=== PATIENT | male | born 1985 | race Caucasian/White ===

== ENCOUNTER 2021-01-04 20:09 | Emergency (ER) | payer OTHER ==
[2021-01-04 20:25] VITALS: BP 144/107; RESP 20; TEMP 98.1
[2021-01-04 20:32] VITALS: PULSE 75
[2021-01-04] MEDS ORDERED: AMOXIC-POT CLAV 875-125MG 1 EACH TAB PO STA ×2 (20:57→21:24)
[2021-01-04] MEDS ORDERED: DIPH,PERTUS(ACELL)TETVAC-LF 0.5 ML VIAL IM ONE (20:57)
[2021-01-04] MEDS ORDERED: ACETAMINOPHEN TAB 325 MG TAB PO STA (20:57)
--- NOTE | 2021-01-04 21:09 | ED ---
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 Patient states th at the dog belonged to the customer. He does not know the status of the dog's shots. The police were on the scene. He has a puncture janelle to the front of his leg and two punctures to the back of his calf. He is unsure of his tetanus status. He denies any other medical history. He states he was told he has penicillin ALLERGY as a child but does not know his reaction. Complaint: animal bite -: hour(s) (1) Location: other Left: Leg Animal: dog Description: immunizations unknown Mechanism: bite Severity scale (1-10): 4 Context: unprovoked Associated Symptoms: none - Related Data Patient Tetanus UTD: No Previous Rx's Medication Instructions Recorded Amoxicillin/Potassium Clav 1 tab PO Q12HR #20 tab 01/04/21 [Augmentin 875-125 Tablet] Allergies Allergy/AdvReac Type Severity Reaction Status Date / Time Penicillins Allergy Unknown Verified 01/04/21 21:33 Childhood Review of Systems ROS Statement: Those systems with pertinent positive or pertinent negative responses have been documented in the HPI. ROS Other: All systems not noted in ROS Statement are negative. Past Medical History Past Medical History: No Reported History History of Any Multi-Drug Resistant Organisms: None Reported Past Surgical History: No Surgical Hx Reported Past Psychological History: No Psychological Hx Reported Smoking Status: Current every day smoker Past Alcohol Use History: Occasional Past Drug Use History: Marijuana General Exam Limitations: no limitations General appearance: alert, in no apparent distress Head exam: Present: atraumatic, normocephalic, normal inspection Eye exam: Present: normal appearance, PERRL, EOMI. Absent: scleral icterus, conjunctival injection, periorbital swelling ENT exam: Present: normal exam, mucous membranes moist Neck exam: Present: full ROM Respiratory exam: Present: normal lung sounds bilaterally. Absent: respiratory distress, wheezes, rales, rhonchi, stridor Cardiovascular Exam: Present: regular rate, normal rhythm, normal heart sounds. Absent: systolic murmur, diastolic murmur, rubs, gallop, clicks Extremities exam: Present: full ROM, tenderness, normal capillary refill. Absent: pedal edema, joint swelling Left Hip exam: Present: full ROM. Absent: tenderness Upper Leg exam: Present: full ROM. Absent: tenderness Knee exam: Present: full ROM. Absent: tenderness Lower Leg exam: Present: full ROM, tenderness (2 puncture wounds to the posterior surface of the left calf and one puncture wound to the anterior surface). Absent: swelling Ankle exam: Present: full ROM. Absent: tenderness Neurovascular tendon exam: Present: no vascular compromise. Absent: abnormal cap refill, pallor Back exam: Present: full ROM. Absent: tenderness Neurological exam: Present: alert, oriented X3, CN II-XII intact Psychiatric exam: Present: normal affect, normal mood Skin exam: Present: warm, dry, intact, normal color. Absent: rash Course Vital Signs 01/04/21 20:21 Temperature 98.1 F Pulse Rate 75 Respiratory 20 Rate Blood Pressure 144/107 O2 Sat by Pulse 99 Oximetry Medical Decision Making - Medical Decision Making X-ray shows no acute osseous abnormality or foreign body. Patient's tetanus shot was updated at this visit. Wounds were irrigated with water. Patient was offered rabies vaccine and declined. Patient was also offered Tylenol or Motrin for pain and he declined. Patient was placed on Augmentin, he states that he was told as a child he had penicillin ALLERGY but has never been told what the ALLERGY was. He is willing to try the Augmentin and to return to the emergency room with any complications including difficulty breathing, nausea vomiting. Directed to follow up with his primary care doctor in 1 week. Case discussed with Dr. Cassidy Disposition Clinical Impression: Dog bite Disposition: HOME SELF-CARE Condition: Good Instructions (If sedation given, give patient instructions): Animal Bite (ED) Additional Instructions: Return to the emergency room with any worsening symptoms including pain, fever or drainage from the sites. Take antibiotics as prescribed. Follow-up with the primary care doctor in 1 week Prescriptions: Amoxicillin/Potassium Clav [Augmentin 875-125 Tablet] 1 tab PO Q12HR #20 tab Is patient prescribed a controlled substance at d/c from ED?: No Referrals: None,Stated [Primary Care Provider] - 1-2 days Time of Disposition: 21:26
--- NOTE | 2021-01-04 21:18 | XR ---
RESULT: HISTORY: pain TECHNIQUE: 2 views of the left tibia and fibula were obtained. COMPARISON: None. FINDINGS: There is no acute fracture or dislocation of the tibia or fibula. The visualized joint spaces are pre served. No radiopaque foreign body. IMPRESSION: No acute osseous abnormality or radiopaque foreign body.
[2021-01-04] MEDS ORDERED: BACITRACIN OINT 1 EACH PACKET TOPICAL ONE (21:20)
== END 2021-01-04 22:07 | disposition home or self-care (01) ==
LOC: EC 20:09
DX: S81.852A Open bite, left lower leg, initial encounter (principal); F17.200 Nicotine dependence, unspecified, uncomplicated; Z23 Encounter for immunization; Z88.0 Allergy status to penicillin; W54.0XXA Bitten by dog, initial encounter; Y92.89 Other specified places as the place of occurrence of the external cause; Y99.0 Civilian activity done for income or pay
CPT/HCPCS: 90471; 90715; 99283

== ENCOUNTER → 2021-11-06 | Outpatient (CLI) | payer OTHER ==
--- NOTE | 2021-11-06 09:56 | US ---
EXAMINATION TYPE: US mass soft tissue chest/back DATE OF EXAM: 11/06/2021 COMPARISON: NONE CLINICAL HISTORY: M79.89 SOFT TISSUE MASS. Palpable lump midline, lower spine x 2 years Oval poorly marginated 2.1 x 1.1 x 1.9 cm slightly hyperechoic avascular mass that is wider greater t hall fall with increased through transmission in the subcutaneous tissue just below the dermal layer i s identified at palpable abnormality and images saved. IMPRESSION: As above. Benign subcutaneous lipoma is suspected.
--- NOTE | 2021-11-06 09:57 | US ---
EXAMINATION TYPE: US abdomen limited DATE OF EXAM: 11/06/2021 COMPARISON: NONE CLINICAL HISTORY: K42.9 UMBILICAL HERNIA. Pt states a bulge at umbilicus x 8 months Assess for hernia at location of: Umbilicus Probable hernia in area of umbilicus= 2.1 cm, abdominal wall "break" visualized- no peristalsis vis ualized during valsalva maneuver IMPRESSION: Moderate size umbilical hernia containing fat and tiny mesenteric vessel seen on images obtained. Real-time scanning was performed by the machine packager utilizing Valsalva and additional dynamic maneuve rs to assess for hernia.
== END | disposition home or self-care (01) ==
LOC: RADUSWWP 09:22
PROVIDERS: ATTEND Family Medicine
DX: M79.89 Other specified soft tissue disorders (principal); K42.9 Umbilical hernia without obstruction or gangrene
CPT/HCPCS: 76705

== ENCOUNTER → 2022-03-07 | Outpatient (CLI) | payer OTHER ==
[2022-03-07 18:31] LABS: HCT 50.8 % (39.6-50.0); HGB 16.9 g/dL (13.0-17.0); MCH 30.3 pg (27.0-32.0); MCHC 33.3 g/dL (32.0-37.0); MCV 91.2 fL (80.0-97.0); Mean Platelet Volume 11.3 fL (9.5-12.2); NRBC Per 100 WBC 0 /100 WBCS (0.0-0.0); Platelet Count 265 X 10*3/uL (140-440); RBC 5.57 X 10*6/uL (4.40-5.60); WBC 8.77 X 10*3/uL (4.50-10.00)
== END | disposition home or self-care (01) ==
LOC: LABPAT 11:16
PROVIDERS: ATTEND Surgery Plastic and Reconstructive Surgery
DX: Z01.812 Encounter for preprocedural laboratory examination (principal); K46.9 Unspecified abdominal hernia without obstruction or gangrene
CPT/HCPCS: 85027

== ENCOUNTER 2022-03-10 08:43 | Day surgery (SDC) | payer OTHER ==
[2022-02-07 14:45] VITALS: BMI 28.7
--- NOTE | 2022-03-10 07:54 | P.GSHP ---
History of Present Illness H&P Date: 03/10/22 CHIEF COMPLAINT: Ventral hernia HISTORY OF PRESENT ILLNESS: The patient is a 36-year-old male presents with a history of swelling and pain along the abdomen from a hernia of the abdomen. Symptoms have been present for over 6 months. Now he presents for surgical intervention. PAST MEDICAL HISTORY: Please see list. PAST SURGICAL HISTORY: Please see list. MEDICATIONS: Please see list. ALLERGIES: Please see list. SOCIAL HISTORY: No illicit drug use FAMILY HISTORY: No reports of Crohn disease or ulcerative colitis. REVIEW OF ORGAN SYSTEMS: CONSTITUTIONAL: No reports of fevers or chills. No reports of weight loss despite prior attempts. GI: Denies any blood in stools or constipation. PHYSICAL EXAM: VITAL SIGNS: Stable GENERAL: Well-developed pleasant male in no acute distress. HEENT: No scleral icterus. Extraocular movements grossly intact. Moist buccal mucosa. NECK: Supple without lymphadenopathy. CHEST: Unlabored respirations. Equal bilateral excursions. CARDIOVASCULAR: Regular rate and rhythm. Distal 2+ pulses. ABDOMEN: Soft, nondistended. Palpable defect of the abdomen. No peritoneal signs. MUSCULOSKELETAL: No clubbing, cyanosis, or edema. ASSESSMENT: 1. Ventral hernia PLAN: 1. Recommend proceeding with robotic ventral hernia repair with mesh. 2. Benefits and risks of surgical intervention was discussed including possibility of open technique. 3. DVT prophylaxis. 4. Antibiotic prophylaxis. 5. Non narcotic pain management including abdominal wall block described 6. Blood sugar glucose described. 7. Weight loss management described. Past Medical History Past Medical History: No Reported History History of Any Multi-Drug Resistant Organisms: None Reported Past Surgical History: Hernia Repair Additional Past Surgical History / Comment(s): Past Anesthesia/Blood Transfusion Reactions: No Reported Reaction Smoking Status: Current every day smoker - Past Family History Mother Family Medical History: No Reported History Medications and Allergies Home Medications Medication Instructions Recorded Confirmed Type No Known Home Medications 02/07/22 03/07/22 History Allergies Allergy/AdvReac Type Severity Reaction Status Date / Time Penicillins Allergy Unknown Verified 03/07/22 09:15 Childhood
[~2022-03-10 08:43] MED LIST: ACETAMINOPHEN TAB 500 MG TAB PO STA; DEXAMETHASONE SOD PHOSPHATE 4 MG/ML 1 ML VIAL IV ONE; GABAPENTIN 300 MG CAP PO STA; HEPARIN SODIUM,PORCINE/PF 5,000 UNIT/0.5 ML SYRINGE SQ PRN; HYDROmorphone 0.5 MG/0.5 ML SYRINGE IVP PRN; LACTATED RINGERS 1,000 ML IV SCH; ONDANSETRON 4 MG/2 ML VIAL IVP ONE
[2022-03-10] MEDS ORDERED: MELOXICAM 7.5 MG TAB PO SCH (09:00)
[2022-03-10 09:57] LABS: ALT 30 U/L (4-49); African American GFR (CKD) >90 (>60 ml/min/1.73 sqM); Albumin 4.8 g/dL (3.5-5.0); Anion Gap 12 mmol/L; Blood Urea Nitrogen 15 mg/dL (9-20); Calcium 9.4 mg/dL (8.4-10.2); Carbon Dioxide 22 mmol/L (22-30); Chloride 104 mmol/L (98-107); Glucose 105 mg/dL (74-99); Non-African American GFR(CKD) >90 (>60 ml/min/1.73 sqM); Sodium 138 mmol/L (137-145); Total Bilirubin 0.9 mg/dL (0.2-1.3); Total Protein 7.5 g/dL (6.3-8.2)
[2022-03-10] MEDS ORDERED: MIDAZOLAM 2 MG/2 ML VIAL IVP ONE (10:02)
[2022-03-10] MEDS ORDERED: fentaNYL (PF) 50 MCG/ML 2 ML AMP IVP ONE (10:02)
[2022-03-10 10:04] LABS: AST 31 U/L (17-59); Alkaline Phosphatase 66 U/L (38-126)
[2022-03-10] MEDS ORDERED: fentaNYL (PF) 50 MCG/ML 2 ML AMP ONE (10:45)
[2022-03-10] MEDS ORDERED: GLYCOPYRROLATE 0.2 MG/ML 2 ML VIAL ONE (10:45)
[2022-03-10] MEDS ORDERED: NEOSTIGMINE 1 MG/ML 10 ML VIAL ONE (10:45)
[2022-03-10] MEDS ORDERED: LIDOCAINE 2% INJ 20 MG/ML (2 ML VIAL) ONE (10:45)
[2022-03-10] MEDS ORDERED: SODIUM CHLORIDE 0.9% (PF) 10 ML VIAL ONE (10:45)
[2022-03-10] MEDS ORDERED: ROCURONIUM 10 MG/ML (5 ML VIAL) IV ONE (10:45)
[2022-03-10] MEDS ORDERED: ROPIVACAINE 5 MG/ML 30 ML VIAL ONE (10:45)
[2022-03-10] MEDS ORDERED: SUCCINYLCHOLINE CHLORIDE 200 MG/10 ML VIAL IV ONE (10:45)
[2022-03-10] MEDS ORDERED: PROPOFOL 10 MG/ML 20 ML VIAL IV ONE (10:45)
[2022-03-10] MEDS ORDERED: BUPIVACAINE (PF) 0.5% 30 ML VIAL SQ ONE (11:15)
[2022-03-10 12:19] VITALS: TEMP 97.4
--- NOTE | 2022-03-10 13:44 | P.OP ---
Date of Procedure: 03/10/22 Description of Procedure: SURGEON: LIANE CHILDERS MD PREOPERATIVE DIAGNOSES: 1. Initial incarcerated umbilical hernia 2. Tobacco use disorder POSTOPERATIVE DIAGNOSES: 1. Initial incarcerated umbilical hernia 2. Tobacco use disorder OPERATION: 1. Robotic-assisted da Tyson Xi laparoscopic repair of initial incarcerated umbilical hernia with mesh, ventralight ST mesh 11.4 cm Anesthesia: GETA, regional, local Estimated Blood Loss (ml): 5 Pathology: 1. Incarcerated umbilical hernia defect COMPLICATIONS: None. Operative Findings: 1. Umbilical hernia defect 2 x 2 cm 2. Fascia repaired using #1 V-lock suture INDICATIONS: The patient is a 36-year-old male who presents with a personal history of abdominal wall hernia. Surgical intervention with laparoscopic versus robotic and open techniques were reviewed. Placement of mesh was also reviewed. Benefits and risks were thoroughly described. Informed consent was obtained. DESCRIPTION OF PROCEDURE: The patient was brought into the operating room and laid in supine position. After general induction, the abdomen had been prepped and draped in standard sterile fashion. Ioban draping was also placed. Prior to incision, a timeout protocol was confirmed with surgical team regarding the patient's name including procedures to be performed. The robot was primed prior to the procedure. A field block using local anesthetic was placed along hernia site including the proposed port sites. Initial incision was made with an #11 blade along the left upper quadrant. A 0 degree 5 mm laparoscopic trocar entry was performed and insufflated. Three 8 mm ports were placed along the left lateral abdominal wall under direct localization after exchanging the 5-mm for an 8 mm port. Placements of the ports were 15 cm from the target anatomy and 10 cm apart. An accessory 12 mm port was placed at the left upper quadrant for exchange of mesh including sutures. The [employer] robot was previously primed, prepped and draped then docked from the right side of the patient onto the left side of the patient. I then sat at the robot [employer] console where working arms of the robot including Bovie cautery connected to robotic scissors, needle dedicated regional driver, and graspers placed by the biology research assistant. The defect was reduced of incarcerated preperitoneal. Distinct fascial defect umbilical hernia defect 2 x 2 cm found. The incarcerated contents were reduced as the peritoneal fat was cleaned from the abdominal wall. Next, hemostasis was checked with cautery. The hernia defect was oversewn using #1 nonabsorbable V-lock suture with fascial imbrication x 2. Next, ventralight ST mesh 11.4 cm was placed with the rough si de towards the abdominal wall as to cover the umbilical defect. 2-0 VLOC absorbable sutures were used to fixate the mesh. A final endoscopic imaging was obtained. All instruments and pneumoperitoneum were evacuated from the abdominal cavity. The da Tyson Xi robot was undocked from the patient. I re-scrubbed into the case for closure of incisions. The fascia of the 12-mm port was probed and less than 8-mm in size. The incisions were reapproximated using 4-0 Monocryl in an interrupted subcuticular fashion. Liquid glue was applied to the skin after cleansing the skin with normal saline and dilute hydrogen peroxide. An abdominal binder was placed. An umbilical dressing was placed prior. At the end of the procedure, needle, sponge, and instrument count had been verified correct by regional vice president surgical sales. The patient was taken to the postanesthesia care unit in stable condition. Plan - Discharge Summary Discharge Rx Participant: No New Discharge Prescriptions: New Ibuprofen [Motrin] 600 mg PO Q8HR PRN #30 tab PRN Reason: Pain Cyclobenzaprine [Flexeril] 10 mg PO TID #30 tab Simethicone [Gas-X] 125 mg PO AC-TID PRN #20 capsule PRN Reason: Pain Acetaminophen Tab [Tylenol Tab] 1,000 mg PO Q6HR PRN #30 tablet PRN Reason: Pain Discharge Medication List Acetaminophen Tab [Tylenol Tab] 1,000 mg PO Q6HR PRN #30 tablet 03/10/22 [Rx] Cyclobenzaprine [Flexeril] 10 mg PO TID #30 tab 03/10/22 [Rx] Ibuprofen [Motrin] 600 mg PO Q8HR PRN #30 tab 03/10/22 [Rx] Simethicone [Gas-X] 125 mg PO AC-TID PRN #20 capsule 03/10/22 [Rx] Follow up Appointment(s)/Referral(s): Liane Childers MD [STAFF PHYSICIAN] - 03/18/22 (TELEHEALTH) Patient Instructions/Handouts: *[facility] - Managing Your Pain After Surgery Without Opioids, *[facility] - (Anesthesia) Discharge Instructions Outpatient Surgery, Laparoscopic Herniorrhaphy (PRE), Abdominal Binder (DC), Ventral Hernia Repair (GEN) Activity/Diet/Wound Care/Special Instructions: DO NOT REMOVE UMBILICAL DRESSING. Using antibacterial soap. No lifting over 4 pounds 4 weeks, Apr 10September shower. No bathtub soaks for 2 weeks, Mar 24 Wear abdominal binder daily for comfort except for showering. Use ice along incisions for today to prevent swelling. Take tylenol, aleve/ibuprofen, simethicone scheduled for 3 days for best pain relief Discharge Disposition: HOME SELF-CARE
[2022-03-10 14:00] VITALS: RESP 18
--- NOTE | 2022-03-10 14:00 | P.ANPRN ---
Procedure Note - Anesthesia - Nerve Block Performed Bilateral Rectus Abdominis Time Out Performed: Yes (:) Date of Procedure: 03/10/22 Procedure Start Time: Procedure Stop Time: :11 Location of Patient: PreOp Indication: Acute Post-Operative Pain, Requested by Surgeon (Liseth) Sedation Type: Sedate with meaningful contact maintained Preparation: Sterile Prep Position: Supine Catheter: None Needle Types: Pajunk Needle Gauge: 21 Ultrasound used to visualize needle placement: Yes Ultrasound used to observe medication spread: Yes Injectate: 0.5% Ropivacaine (see comment for volume) (15cc +5cc PF Normal saline each side) Blood Aspirated: No Pain Paresthesia on Injection Noted: No Resistance on Injection: Normal Image Stored and Saved: Yes Events: Uneventful and Well Tolerated
[2022-03-10 14:31] VITALS: BP 130/84; PULSE 57
== END 2022-03-10 15:08 | disposition home or self-care (01) ==
LOC: OR 08:43
PROVIDERS: ATTEND Surgery Plastic and Reconstructive Surgery
DX: K42.0 Umbilical hernia with obstruction, without gangrene (principal); G89.18 Other acute postprocedural pain; F17.200 Nicotine dependence, unspecified, uncomplicated; Z98.890 Other specified postprocedural states; Z88.0 Allergy status to penicillin
CPT/HCPCS: 64488; 80053; 88302; 49653; C1781; J2250; J0330; J1100; J2710; J0690; J2405; J3010; J2795; J2704; J1170; J2001

== ENCOUNTER → 2022-06-17 | Outpatient (CLI) | payer OTHER ==
--- NOTE | 2022-06-17 15:48 | US ---
EXAMINATION TYPE: US scrotum with doppler. DATE OF EXAM: 06/17/2022 COMPARISON: NONE CLINICAL HISTORY: 36-year-old male I86.1 SCROTAL VARICES. Pt states dull ache right side TECHNIQUE: Grayscale and color Doppler Duplex imaging performed of the scrotum. FINDINGS: EXAM MEASUREMENTS: TESTICLES: Right Testicle: 4.6 x 2.3 x 3.2 cm Left Testicle: 4.1 x 2.3 x 3.1 cm Doppler performed to assess for testicular vascularity; good bilateral color flow and waveforms are s een. There is no evidence of testicular torsion. EPIDIDYMIS HEAD: Right Epididymis: 1.0 cm Left Epididymis: 1.0 cm Presence of hydroceles: No Presence of varicoceles: Vessels visualized inferior to right testicle and lateral to left testicle Right inguinal canal imaged in area of pt's ache, lymph node= 1.6 x 0.8 x 0.9 cm/ Please note, mult iple valsalva maneuver images obtained IMPRESSION: 1. Prominent vessels show slight augmentation located below the right testicle and lateral to the lef t testicle suggesting developing small varicoceles. 2. Additional targeted scanning in the right inguinal canal region at the site of patient's 8 shows a prominent but nonenlarged 1.6 x 0.9 cm lymph node. Multiple Valsalva maneuvers were performed. 3. No sonographic evidence for testicular torsion or epididymoorchitis.
== END | disposition home or self-care (01) ==
LOC: RADUSWWP 10:18
PROVIDERS: ATTEND Family Medicine
DX: I86.1 Scrotal varices (principal)
CPT/HCPCS: 76870; 93975

== ENCOUNTER → 2023-09-25 | Outpatient (CLI) | payer OTHER ==
[2023-09-25 14:29] LABS: Basophils # (A) 0.08 X 10*3/uL (0.00-0.10); Basophils % (A) 1.1 %; Eosinophils # (A) 0.08 X 10*3/uL (0.04-0.35); Eosinophils % (A) 1.1 %; HCT 47.9 % (39.6-50.0); HGB 15.8 g/dL (13.0-17.0); Lymphocytes # (A) 2.78 X 10*3/uL (0.90-5.00); Lymphocytes % (A) 39.3 %; MCH 29.9 pg (27.0-32.0); MCV 90.5 FL (80.0-97.0); Mean Platelet Volume 10.3 FL (9.5-12.2); Monocytes # (A) 0.55 X 10*3/uL (0.20-1.00); Monocytes % (A) 7.8 %; NRBC Per 100 WBC 0 X 10*3/uL (0.00-0.01); Neutrophils # (A) 3.55 X 10*3/uL (1.80-7.70); Neutrophils % (A) 50.3 %; Platelet Count 269 X 10*3/uL (140-440); RBC 5.29 X 10*6/uL (4.40-5.60); RDW 12.7 % (11.5-14.5); WBC 7.07 X 10*3/uL (4.50-10.00)
[2023-09-25 15:43] LABS: ALT 44 U/L (10-49); AST 22 U/L (14-35); Albumin 4.8 g/dL (3.8-4.9); Albumin/Globulin Ratio 2.29 Ratio (1.60-3.17); Alkaline Phosphatase 57 U/L (41-126); BUN/Creat Ratio 16.38 Ratio (12.00-20.00); Blood Urea Nitrogen 13.1 mg/dL (9.0-27.0); Calcium 9.8 mg/dL (8.7-10.3); Carbon Dioxide 27.2 mmol/L (21.6-31.8); Chloride 104 mmol/L (96-109); Chol/HDL Ratio 4.97 Ratio; Globulin 2.1 g/dL (1.6-3.3); Glucose 104 mg/dL (70-110); LDL Cholesterol,Calculated 167.5 mg/dL (0.0-131.0); Potassium 5.4 mmol/L (3.5-5.5); Sodium 142 mmol/L (135-145); T4, Free (Free Thyroxine) 1.19 ng/dL (0.80-1.80); Total Bilirubin 0.5 mg/dL (0.3-1.2); Total Protein 6.9 g/dL (6.2-8.2)
== END | disposition home or self-care (01) ==
LOC: LABWHC1 10:32
PROVIDERS: ATTEND Family Medicine
DX: Z00.00 Encounter for general adult medical examination without abnormal findings (principal); I10 Essential (primary) hypertension
CPT/HCPCS: 36415; 80053; 80061; 83036; 84439; 84443; 85025